=== PATIENT | male | born 1995 | race Caucasian/White ===

== ENCOUNTER 2018-07-21 16:21 | Emergency (ER) | payer OTHER ==
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
[2018-07-21] MEDS ORDERED: LET GEL TOPICAL 1 EA SYR TP ONE (16:36)
[2018-07-21] MEDS ORDERED: HYDROCOD/APAP 5/325 PREPACK#6 BTL TAKEHOME ONE (17:00)
[2018-07-21 17:48] VITALS: BP 142/95
== END 2018-07-21 17:58 | disposition home or self-care (01) ==
DX: S42.032A Displaced fracture of lateral end of left clavicle, initial encounter for closed fracture (principal); V18.0XXA Pedal cycle driver injured in noncollision transport accident in nontraffic accident, initial encounter; Y93.55 Activity, bike riding; Y92.410 Unspecified street and highway as the place of occurrence of the external cause
CPT/HCPCS: A4565